=== PATIENT | female | born 1950 | race African-American/Black ===

== ENCOUNTER 2017-01-15 23:30 | Emergency (ER) | payer MEDICARE ==
[~2017-01-15 23:30] MED LIST: AZITHROMYCIN250 MG PO; CEFDINIR300 MG PO; DUONEB 2.5-0.5M1 AMP INH; K-DUR20 MEQ PO; MUCINEX 600MG600 MG PO; PROAIR HFA8.5 GM INH; SINGULAIR10 MG PO; SYMBICORT 1601 PUFFS INH; THEOPHYLLINE400 MG PO
== END 2017-01-16 01:10 | disposition home or self-care (01) ==
LOC: FER 23:30
DX: J45.909 Unspecified asthma, uncomplicated (principal); J44.9 Chronic obstructive pulmonary disease, unspecified; Z88.1 Allergy status to other antibiotic agents; Z88.2 Allergy status to sulfonamides
CPT/HCPCS: 87804; 87899; 99283

== ENCOUNTER 2017-05-27 07:00 | Inpatient (IN) | payer MEDICARE, OTHER ==
[~2017-05-27] VITALS: Ht 167.6 cm; Wt 73.1 kg
[2017-07-08 06:22] LABS: CREATININE 0.5 mg/dL (0.5-1.0); POTASSIUM 3.6 mmol/L (3.5-5.1)
[2017-07-09 05:49] LABS: HCT 33.8 % (37.0-47.0); HGB 11.1 g/dl (12.5-16.0); MCH 30.5 pg (25.0-31.0); MCHC 32.8 g/dL (32.0-36.0); MCV 92.9 fL (78.0-100.0); MPV 11.3 fL (6.0-9.5); RBC 3.64 M/uL (4.20-5.40); RDW 15.4 % (11.5-14.0); WBC 6.9 K/uL (4.0-10.5)
[2017-07-09 06:22] LABS: CREATININE 0.6 mg/dL (0.5-1.0); POTASSIUM 3.8 mmol/L (3.5-5.1)
[2017-07-10 06:22] LABS: HCT 32.7 % (37.0-47.0); MCH 30.9 pg (25.0-31.0); MCHC 33.6 g/dL (32.0-36.0); MCV 91.9 fL (78.0-100.0); MPV 11.2 fL (6.0-9.5); RBC 3.56 M/uL (4.20-5.40); RDW 14.9 % (11.5-14.0); WBC 9.6 K/uL (4.0-10.5)
[2017-07-10 11:45] LABS: CREATININE 0.6 mg/dL (0.5-1.0); POTASSIUM 3.7 mmol/L (3.5-5.1)
[2017-07-11 06:41] LABS: HCT 32.3 % (37.0-47.0); HGB 10.8 g/dl (12.5-16.0); MCH 30.8 pg (25.0-31.0); MCHC 33.4 g/dL (32.0-36.0); MPV 11.3 fL (6.0-9.5); RBC 3.51 M/uL (4.20-5.40); RDW 14.8 % (11.5-14.0); WBC 7.1 K/uL (4.0-10.5)
[2017-07-11 06:58] LABS: CREATININE 0.7 mg/dL (0.5-1.0)
== END 2017-07-11 12:15 | DRG 470 ==
LOC: FMS 07:00
PROVIDERS: Internal Medicine; ADMIT Orthopaedic Surgery
PROC: 8E0YXBZ Computer Assisted Procedure of Lower Extremity (ICD-10-PCS; 2017-07-08)
PROC: 0SRC0J9 Replacement of Right Knee Joint with Synthetic Substitute, Cemented, Open Approach (ICD-10-PCS; principal; 2017-07-08 07:00)
DX: M17.11 Unilateral primary osteoarthritis, right knee (principal); I48.91 Unspecified atrial fibrillation; J44.9 Chronic obstructive pulmonary disease, unspecified; N39.3 Stress incontinence (female) (male); D57.3 Sickle-cell trait; K21.9 Gastro-esophageal reflux disease without esophagitis; Z79.899 Other long term (current) drug therapy; Z88.7 Allergy status to serum and vaccine; Z91.041 Radiographic dye allergy status; Z88.2 Allergy status to sulfonamides; Z91.010 Allergy to peanuts; Z91.048 Other nonmedicinal substance allergy status
CPT/HCPCS: 36415; 73560; 80048; 86850; 86900; 86901; 88305; 94010; 94640; 94762; 97110; 97116; 97162; 97166; 97530-GP; 97535; C1713; C1776; J0131; J0697; J1170; J1885; J2270; J2405; J2704; J2795; J3010

== ENCOUNTER 2017-07-11 10:55 | Inpatient (IN) | payer MEDICARE ==
[~2017-07-11] VITALS: Ht 160 cm; Wt 79.0 kg
--- NOTE | 2017-07-15 13:58 | NUR ---
PT REQUESTED TO D/C HOME THIS DATE. PT. REQUESTED OUTPT. AT [facility]. FIRST APPT. IS 07/16/17 @ 11:45 A[facility] [facility] TO DELIVER A ROLLING WALKER UPON DISCHARGE. D/C NOTICE AND QUESTIONNAIRE GIVEN.
[2017-07-15] MEDS ORDERED: XARELTO10 MG PO (15:33)
[2017-07-15] MEDS ORDERED: FEOSOL325 MG PO (15:34)
[2017-07-15] MEDS ORDERED: PERCOCET 5/3251 TAB PO (15:34)
[2017-07-15] MEDS ORDERED: COLACE100 MG PO (15:35)
[2017-07-15] MEDS ORDERED: ACETAMINOPHEN325 MG PO (15:35)
[2017-07-15] MEDS ORDERED: THEOPHYLLINE400 MG PO (15:36)
[2017-07-15] MEDS ORDERED: SINGULAIR10 MG PO (15:36)
[2017-07-15] MEDS ORDERED: DUONEB 2.5-0.5M1 AMP INH (15:36)
[2017-07-15] MEDS ORDERED: K-DUR20 MEQ PO (15:37)
[2017-07-15] MEDS ORDERED: IBUPROFEN800 M1 PO (15:37)
[2017-07-15] MEDS ORDERED: ALLI60 MG PO (15:38)
[2017-07-15] MEDS ORDERED: PREVACID PO (15:39)
[2017-07-15] MEDS ORDERED: TUMS200 MG PO (15:39)
[2017-07-15] MEDS ORDERED: BREO (15:39)
[2017-07-15] MEDS ORDERED: LAXATIVE OF CHOICE (15:40)
[2017-07-15] MEDS ORDERED: PRILOSEC20 MG PO (15:40)
== END 2017-07-15 15:05 | disposition home or self-care (01) | DRG 561 ==
LOC: FSNU 10:55
PROVIDERS: ADMIT Internal Medicine
DX: Z47.1 Aftercare following joint replacement surgery (principal); I48.91 Unspecified atrial fibrillation; J44.9 Chronic obstructive pulmonary disease, unspecified; Z96.651 Presence of right artificial knee joint; K21.9 Gastro-esophageal reflux disease without esophagitis; Z79.899 Other long term (current) drug therapy
CPT/HCPCS: 88311; 97110; 97116; 97161; 97165; 97530-GP

== ENCOUNTER 2022-05-04 16:41 | Emergency (ER) | payer MEDICARE ==
[~2022-05-04 16:41] MED LIST changes: +ACETAMINOPHEN325 MG PO; +ALLI60 MG PO; +BREO INH; +COLACE100 MG PO; +FEOSOL325 MG PO; +HYDROCHLOROTHIA50 MG PO; +IBUPROFEN800 M1 PO; +LAXATIVE OF CHOICE; +NORCO 5-325 TA1 EACH PO; +PERCOCET 5/3251 TAB PO; +PRENATAL FORMU1 EACH PO; +PREVACID PO; +PRILOSEC20 MG PO; +PROCTOZONE-HC 230 GM TOP; +THEOPHYLLINE600 MG PO; +TUMS200 MG PO; +VITAMIN B-650 MG PO; +XARELTO10 MG PO; +ZOFRAN8 MG PO
[2022-05-04 18:05] LABS: BASOPHIL 1.6 % (0-2); EOSINOPHIL 1.6 % (0-7); HGB 12.7 g/dl (12.5-16.0); LYMPHOCYTE 33.6 % (15-48); MCH 35.2 pg (25.0-31.0); MCHC 36.3 g/dL (32.0-36.0); MONOCYTE 14.9 % (0-12); MPV 10.6 fL (6.0-9.5); NEUTROPHIL 47.8 % (41-80); NRBC 0; PLT 181 K/uL (150-400); RBC 3.61 M/uL (4.20-5.40); RDW 13.5 % (11.5-14.0); WBC 4.4 K/uL (4.0-10.5)
[2022-05-04 18:27] LABS: ALBUMIN 3.2 g/dL (3.4-5.0); BILIRUBIN - TOTAL 1.6 mg/dL (0.2-1.0); BUN/CREAT RATIO (CALC) 8.9 RATIO; CREATININE 1.68 mg/dL (0.51-0.95); POTASSIUM 3.3 mmol/L (3.5-5.1); TOTAL PROTEIN 7.2 g/dL (6.4-8.2)
[2022-05-04 18:39] LABS: CORONAVIRUS 2019 SARS-COV-2 NEGATIVE (NEGATIVE); INFLUENZA A NAA NEGATIVE (NEGATIVE)
[2022-05-04] MEDS ORDERED: PREDNISONE 20MG20 MG PO (20:13)
[2022-05-04] MEDS ORDERED: VIBRAMYCIN100 MG PO (20:13)
== END 2022-05-04 21:47 | disposition home or self-care (01) ==
LOC: FER 16:41
PROVIDERS: Emergency Medicine
DX: J44.1 Chronic obstructive pulmonary disease with (acute) exacerbation (principal); N18.30 Chronic kidney disease, stage 3 unspecified; Z88.2 Allergy status to sulfonamides; Z88.1 Allergy status to other antibiotic agents; Z91.041 Radiographic dye allergy status; Z20.822 Contact with and (suspected) exposure to COVID-19
CPT/HCPCS: 36415; 71045; 71250; 80053; 83605; 83880; 84145; 84484; 85025; 85379; 93005; 94640; 94664; J2543; J2930; U0002